=== PATIENT | male | born 1985 ===

== ENCOUNTER → 2018-10-29 19:29 | Outpatient (REF) | payer SELFPAY ==
[2018-10-29 20:14] LABS: Alanine Aminotransferase 56 IU/L (21-72); Albumin 4.6 g/dL (3.5-5.0); Albumin Globulin Ratio 1.3 (1.0-2.8); Alkaline Phosphatase 83 U/L (38-126); Aspartate Aminotransferase 35 IU/L (17-59); BUN Creatinine Ratio 16.3 (6-22); Bilirubin Total 0.6 mg/dL (0.2-1.3); Blood Urea Nitrogen 13 mg/dL (9-20); Calcium 9.6 mg/dL (8.4-10.2); Carbon Dioxide 27 mmol/L (22-32); Chloride 99 mmol/L (98-107); Cholesterol 258 mg/dL (140-199); Estimated Glomerular Filt Rate > 60.0 mL/min (>60); Globulin 3.5 g/dL (1.7-4.1); Glucose 100 mg/dL (70-100); HDL Cholesterol 34 mg/dL (40-60); HEMOLYSIS 33 (0-50); LDL Cholesterol Calculated 179 mg/dL (<100); Potassium 4.7 mmol/L (3.4-5.1); Sodium 138 mmol/L (137-145); Total Protein 8.1 g/dL (6.3-8.2); Triglycerides 227 mg/dL (35-150)
[2018-10-29 20:54] LABS: Erythrocyte Sedimentation Rate 5 MM/HR (0-15)
== END ==
LOC: LAB 19:29
PROVIDERS: Visit Provider Nurse Practitioner Acute Care
DX: R53.83 Other fatigue (principal); R53.81 Other malaise; R53.1 Weakness
CPT/HCPCS: 80053; 80061; 85651